=== PATIENT | female | born 1980 | race African-American/Black ===

== ENCOUNTER 2017-08-30 10:51 | Emergency (ER) | payer SELFPAY | END 2017-08-30 12:27 | disposition home or self-care (01) | LOC: ER 12:27 | DX: H10.12 Acute atopic conjunctivitis, left eye (principal); H10.89 Other conjunctivitis; B99.9 Unspecified infectious disease; Z91.018 Allergy to other foods | CPT/HCPCS: 99283 ==

== ENCOUNTER 2018-06-16 06:01 | Emergency (ER) | payer OTHER ==
[~2018-06-16] VITALS: Ht 157.5 cm; Wt 60.8 kg
[~2018-06-16 06:01] MED LIST: CETI10TA22 PO; KETO5DRO4 EACHEYE; TOBR5DRO6 OD; TRAM-48 PO
[2018-06-16 06:20] VITALS: BP 136/91
[2018-06-16] MEDS ORDERED: TRAM50TA PO (06:27)
--- NOTE | 2018-06-16 06:27 | PHYS DOC ---
Past Medical History Past Medical History: Other Additional Past Medical Histor: miscarriage,rt. kidney enlarged,ex-lap Past Surgical History: Appendectomy, Other Additional Past Surgical Histo: D&C Alcohol Use: Occasionally Drug Use: None Adult General Chief Complaint Chief Complaint: PAIN CONTROL [facility] HPI Patient is a 37 year old female presented ER today for evaluation of right wrist pain. Patient would like some pain medication for her chronic right wrist pain. Patient says she sustained some injury to her right wrist on June 18, 2017 white lifting heavy boxes at work. Patient says she was seen by [employer] eventually had x-ray done showN an ulnar styloid process fracture on her right wrist. Patient was then seen by an orthopedic doctor who did a steroid injection on her right wrist, she claimed that after the injection her pain got worse. Patient was not happy with that surgeon so she was seen by different hand surgeons. She continued to have pain in her right wrist, she was not happy with the progress of her treatment so she seek opinion from of total 4 different hand surgeons. Patient said none of the doctors would prescribing her any pain medication. She came in today just for pain medication. Review of Systems Review of Systems Constitutional: Denies fever or chills [] Eyes: Denies change in visual acuity, redness, or eye pain [] HENT: Denies nasal congestion or sore throat [] Respiratory: Denies cough or shortness of breath [] Cardiovascular: No additional information not addressed in HPI [] GI: Denies abdominal pain, nausea, vomiting, bloody stools or diarrhea [] : Denies dysuria or hematuria [] Musculoskeletal: Denies back pain. POSITIVE FOR RIGHT WRIST PAIN Integument: Denies rash or skin lesions [] Neurologic: Denies headache, focal weakness or sensory changes [] Endocrine: Denies polyuria or polydipsia [] All other systems were reviewed and found to be within normal limits, except as documented in this note. Allergies Allergies Allergies Coded Allergies Type Severity Reaction Last Updated Verified banana Allergy Intermediate SWELLING 08/21/15 No Physical Exam Physical Exam Constitutional: Well developed, well nourished, no acute distress, non-toxic appearance. [] HENT: Normocephalic, atraumatic, bilateral external ears normal, oropharynx moist, nose normal. [] Eyes: PERRLA, EOMI, conjunctiva normal, no discharge. [] Neck: Normal range of motion, no tenderness, supple, no stridor. [] Skin: Warm, dry, no erythema, no rash. [] Extremities: No tenderness, no cyanosis, no clubbing, ROM intact, no edema. THERE IS NO SWELLING OR REDNESS ON RIGHT WRIST. THERE IS TENDERNESS TO PALPATION ON THE ENTIRE RIGHT WRIST AREA. NO CREPITUS. THERE IS FULL RANGE OF MOTION OF RIGHT WRIST, THERE IS STRONG RADIAL PULSE, THE RIGHT HAND , FINGERS WITH NORMAL CAPILLARY REFILL, WARM TO TOUGH. Neurologic: Alert and oriented X 3, normal motor function, normal sensory function, no focal deficits noted. [] Psychologic: Affect normal, judgement normal, mood normal. [] Current Patient Data Vital Signs Vital Signs Date Time Temp Pulse Resp B/P (MAP) Pulse Ox O2 Delivery O2 Flow Rate FiO2 06/16/18 06:20 98.0 92 24 99 Room Air 98.0 EKG EKG [] Radiology/Procedures Radiology/Procedures [] Course & Med Decision Making Course & Med Decision Making Pertinent Labs and Imaging studies reviewed. (See chart for details) [] Dragon Disclaimer Dragon Disclaimer This electronic medical record was generated, in whole or in part, using a voice recognition dictation system. Departure Departure Impression: Primary Impression: Chronic pain of right wrist Disposition: HOME, SELF-CARE Condition: STABLE Referrals: NO PCP (PCP) follow up with your hand doctor or your pain doctor for fdc treatment. Patient Instructions: Chronic Pain Scripts Tramadol Hcl (TRAMADOL HCL) 50 Mg Tablet 50 MG PO Q6HRS PRN for PAIN, #15 TAB 0 Refills Prov: TACO STAFFORD DO 06/16/18 TACO STAFFORD DO Jun 16, 2018 06:27
== END 2018-06-16 06:34 | disposition home or self-care (01) ==
LOC: ER 06:01
DX: G89.29 Other chronic pain (principal); M25.531 Pain in right wrist; Z90.89 Acquired absence of other organs; Z91.018 Allergy to other foods
CPT/HCPCS: 99283

== ENCOUNTER 2018-11-20 03:29 | Emergency (ER) | payer OTHER ==
[~2018-11-20] VITALS: Ht 157.5 cm; Wt 62.6 kg
[~2018-11-20 03:29] MED LIST changes: +TRAM50TA PO
[2018-11-20 03:34] VITALS: BP 130/87
[2018-11-20] MEDS ORDERED: KETOROLAC 30 MG/ML VIAL. IM ONE (04:30)
[2018-11-20] MEDS ORDERED: HYDR-3164 PO (05:01)
--- NOTE | 2018-11-20 05:01 | RAD ---
EXAM: 1. CHEST 1 VIEW. 2. LEFT SHOULDER 3 VIEWS. 3. LEFT ELBOW 3 VIEWS. HISTORY: Trauma. COMPARISON: None. FINDINGS: There are no confluent infiltrates. There is no pneumothorax or pleural effusion. The heart is not enlarged. There is a comminuted fracture of the left humeral surgical neck with mild medial and posterior angulation of the distal fracture fragment. Inferior subluxation of the humeral head is consistent with a joint effusion. 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 No fractures are appreciated at the left elbow. The lateral view is rotated, limiting sensitivity for joint effusions, but none is seen. Joint spaces and alignment appear maintained on limited projections. IMPRESSION: 1. Comminuted mildly angulated fracture of the left humeral neck. 2. No confluent infiltrates. 3. No fracture or clear joint effusion at the left elbow. Electronically signed by: Alexx Silver MD (11/20/2018 4:58 AM) [id number]
--- NOTE | 2018-11-20 05:11 | PHYS DOC ---
Past Medical History Past Medical History: No Pertinent History Additional Past Medical Histor: miscarriage,rt. kidney enlarged,ex-lap, right wrist fx and tear Past Surgical History: No Surgical History Additional Past Surgical Histo: D&C Alcohol Use: Heavy Drug Use: None Adult General Chief Complaint Chief Complaint: SHOULDER INJURY HPI HPI Patient is a 38 year old f p/w shoulder pain she has had issues with right arm for awhile now tonight she was at home she was drinking some etoh with friends, she reached up to put shot glassees back she felt a pop "i couldnt do anything but fall right to the ground" landed on left elbow pain 10/10 in shoulder radiates to elbow no cp no sob no h/a Review of Systems Review of Systems Current Medications Current Medications Current Medications Medications (Trade) Dose Ordered Sig/Jerry Start Time Stop Time Status Last Admin Dose Admin Ketorolac Tromethamine (Toradol 30mg Vial) 30 mg 1X ONCE 11/20/18 04:30 11/20/18 04:35 DC 11/20/18 04:43 30 MG Allergies Allergies Allergies Coded Allergies Type Severity Reaction Last Updated Verified banana Allergy Intermediate SWELLING 08/21/15 No Physical Exam Physical Exam Constitutional: Well developed, well nourished, no acute distress, non-toxic appearance. [] HENT: Normocephalic, atraumatic, bilateral external ears normal, oropharynx moist, no oral exudates, nose normal. [] Eyes: PERRLA, EOMI, conjunctiva normal, no discharge. [] Neck: Normal range of motion, no tenderness, supple, no stridor. [] Pulmonary: Normal respiratory effort no increased work of breathing no obvious chest wall trauma Abdomen: Bowel sounds normal, soft, no tenderness, no masses, no pulsatile masses. [] Skin: Warm, dry, no erythema, no rash. [] Back: No tenderness, no CVA tenderness. [] Extremities: ttp noted to the left shoulder, reduced rom noted to the left shoulder. abrasion left elbow\\ no wrist ttp Neurologic: Alert and oriented X 3, normal motor function, normal sensory function, no focal deficits noted. [] Psychologic: Affect normal, judgement normal, mood normal. [] Current Patient Data Vital Signs Vital Signs Date Time Temp Pulse Resp B/P (MAP) Pulse Ox O2 Delivery O2 Flow Rate FiO2 11/20/18 03:34 97.4 112 17 130/87 (101) 99 Room Air 97.4 EKG EKG [] Radiology/Procedures Radiology/Procedures [] Impressions: IMPRESSION: 1. Comminuted mildly angulated fracture of the left humeral neck. 2. No confluent infiltrates. 3. No fracture or clear joint effusion at the left elbow. Electronically signed by: Alexx Silver MD (11/20/2018 4:58 AM) [facility] Course & Med Decision Making Course & Med Decision Making Pertinent Labs and Imaging studies reviewed. (See chart for details) []38 yo f with cc of fall found to have shoulder fracture refer to ortho shoulder immobilizer pain control precautions about pain meds provided questions answered no abdo ttp, cxr neg appears to be isolated injury Dragon Disclaimer Dragon Disclaimer This electronic medical record was generated, in whole or in part, using a voice recognition dictation system. Departure Departure Impression: Primary Impression: Shoulder fracture Disposition: 01 HOME, SELF-CARE Condition: STABLE Referrals: NO PCP (PCP) ARMAND ZAPATA II, MD Patient Instructions: Shoulder Fracture Scripts Hydrocodone/Apap 5-325 (NORCO 5-325 TABLET) 1 Each Tablet 1-2 EACH PO PRN Q6HRS PRN for PAIN, #15 as needed for pain Prov: KG LOU MD 11/20/18 KG LOU MD Nov 20, 2018 05:11
== END 2018-11-20 05:10 | disposition home or self-care (01) ==
LOC: ER 03:29
DX: S42.215A Unspecified nondisplaced fracture of surgical neck of left humerus, initial encounter for closed fracture (principal); M25.422 Effusion, left elbow; W18.09XA Striking against other object with subsequent fall, initial encounter; Y93.89 Activity, other specified; Y92.89 Other specified places as the place of occurrence of the external cause; Y99.8 Other external cause status
CPT/HCPCS: 29105; 71045; 73030; 73080; 96372; 99284; J1885